=== PATIENT | male | born 1990 | race Two or more races ===

== ENCOUNTER 2018-08-01 05:03 | Emergency (ER) | payer SELFPAY ==
[2018-08-01] MEDS ORDERED: Adenosine 6 MG/2 ML VIAL ONE (05:05)
[2018-08-01] MEDS ORDERED: Rocuronium Bromide 10 MG/ML (10ML VIAL) ONE (05:08)
[2018-08-01] MEDS ORDERED: Ketamine 50 MG/ML (10ML VIAL) ONE (05:08)
[2018-08-01] MEDS ORDERED: Fentanyl 100 MCG/2 ML VIAL ONE (05:13)
--- NOTE | 2018-08-01 05:56 | PDOC.EVN ---
Event Note - Event Note Event Note: Code Blue Note: I was called to code blue in [facility]. When I arrived the patient was on his side with spit around his mouth and no obvious trauma, supported by L&D RN's and Dr. Lau. Suction was attempted but not working. I ordered versed 5 mg IM x 1. He finished convulsing and subsequently was post-ictal with deep sonorous respirations and was intermittently combative. A second bed was brought to the room, which the patient was placed in, and we obtained IV access and started a NSB. An initial pulse ox had a poor waveform with 80% and I called for help with a potentially difficult airway with no suction and no VL at bedside. We replaced the pulse ox and his saturation was 90%. A FM was placed and his sat froilan to the upper 90's. During this time he was tachycardic in the 180's that appeared to be narrow complex and was difficult to determine the rhythm on the small portable monitor. He was not hypotensive. At this point I felt we had time to transport him to the ED for definitive care in a controlled setting. Transport was uneventful and handoff given to the EM physicians. Appreciate their assistance.
[2018-08-01 06:02] LABS: Lavender RECEIVED; Red RECEIVED
[2018-08-01 06:16] LABS: Acetaminophen Less than 6.0 mcg/mL (10.0-30.0); Alcohol Less than 10 mg/dL (Less than 10); Salicylate Less than 8.0 mg/dL (15.0-30.0)
[2018-08-01 06:17] LABS: ALT (SGPT) 27 U/L (8-55); AST (SGOT) 22 U/L (5-34); Albumin 4.2 g/dL (3.5-5.0); Alcohol Less than 10 mg/dL (Less than 10); Alkaline Phosphatase 66 U/L (40-150); Anion Gap 18 mmol/L (10-20); BUN (Urea Nitrogen) 19 mg/dL (8.9-20.6); Bilirubin, Total 0.5 mg/dL (0.2-1.2); Calc. Creatinine Clearance 0 mL/min (70-130); Calcium 9.5 mg/dL (7.8-10.44); Carbon Dioxide 21 mmol/L (22-29); Chloride 102 mmol/L (98-107); Estimated GFR-MDRD 60; Globulin 3.2 g/dL (2.4-3.5); Glucose 150 mg/dL (70-105); Potassium 4.1 mmol/L (3.5-5.1); Protein, Total 7.4 g/dL (6.0-8.3); Sodium 137 mmol/L (136-145)
[2018-08-01 06:21] LABS: #Basophils 0.1 thou/uL (0.0-0.2); #Eosinphils 0.2 thou/uL (0.0-0.7); #Lymphocytes 4.4 thou/uL (1.20-3.40); #Monocytes 0.5 thou/uL (0.11-0.59); #Neutrophils 6.9 thou/uL (1.40-6.50); %Basophils 0.9 % (0.0-1.0); %Eosinophils 1.5 % (0.0-10.0); %Lymphocytes 36.7 % (21.0-51.0); %Monocytes 4.1 % (0.0-10.0); %Neutrophils 56.8 % (42.0-75.0); Band 1 % (5-11); Eosinophils 2 % (0-10); Hemoglobin 14.3 g/dL (14.0-18.0); Hypochromia SLIGHT = 6-15 cells (100X) (0-5/hpf); Lymphocytes 29 % (21-51); MDiff Complete? YES; Mean Corpuscular HGB CONC 32.6 g/dL (32.0-36.0); Mean Corpuscular Hemoglobin 22.2 pg (27.0-31.0); Mean Corpuscular Volume 68.2 fL (78.0-98.0); Mean Platelet Volume 8.2 fL (7.4-10.4); Monocytes 3 % (0-10); Neutrophil 60 % (42-75); Platelet Count 271 thou/uL (130-400); Platelet Morphology Comment Appears Adequate; RBC Distribution Width 13.9 % (11.5-14.5); Reactive Lymphocytes 5 % (0-10); Red Blood Cell (RBC) Count 6.43 mill/uL (4.70-6.10); Target Cells SLIGHT = 2-5 cells (100X) (0-1/hpf); White Blood Cell (WBC) Count 12.1 thou/uL (4.8-10.8)
[2018-08-01] MEDS ORDERED: levETIRAcetam In NaCl (Iso-Os) 1,500 MG in Premix Bag 1 BAG IVPB SCH (06:30)
[2018-08-01 08:06] LABS: Bilirubin Negative (Negative); Blood, Urine Negative (Negative); Clarity CLEAR (Clear); Glucose, Urine (Dipstick) Negative (Negative); Leukocyte Negative (Negative); Nitrite Negative (Negative); Protein, Urine (Dipstick) Trace mg/dL (Neg-Trace); Urobilinogen 0.2 mg/dL (0.2-1.0); pH, Urine 5.5 (5.0-9.0)
--- NOTE | 2018-08-01 08:13 | CT ---
CT OF HEAD NONCONTRAST: INDICATION: Seizure activity. COMPARISON: No prior comparison. FINDINGS: There is no acute intracranial hemorrhage, mass effect, or midline shift. Ventricular system is norm al in size. Scattered retention cyst formation is seen within the paranasal sinuses. IMPRESSION: 1. No acute intracranial hemorrhage or mass effect. 2. Followup may be obtained with dedicated brain MRI in order to further discern potential etiologic site for seizure nidus. POS: DELL
[2018-08-01 08:32] LABS: Amphetamine Not Detected (NotDetected); Barbiturates Screen Detected (NotDetected); Benzodiazepine Screen Not Detected (NotDetected); Cocaine Metabolite Screen Not Detected (NotDetected); Medtox Control Line Valid? VALID (VALID); Medtox Reader # READER 1; Methadone Not Detected (NotDetected); Methamphetamine Not Detected (NotDetected); Opiate Screen Not Detected (NotDetected); Oxycodone Screen Not Detected (NotDetected); Phencyclidine (PCP) Not Detected (NotDetected); THC/Cannabinoid Screen Not Detected (NotDetected); Tricyclic Screen Not Detected (NotDetected)
== END 2018-08-01 08:35 | disposition home or self-care (01) ==
LOC: ERS 05:03
DX: G40.909 Epilepsy, unspecified, not intractable, without status epilepticus (principal); I48.91 Unspecified atrial fibrillation
CPT/HCPCS: 36415; 70450; 80053; 80306; 80307; 81003; 84146; 84443; 84484; 85025; 93005; 96361; 96374; J0153; J1953; J3010

== ENCOUNTER 2019-06-25 09:30 | Emergency (ER) | payer SELFPAY ==
--- NOTE | 2019-06-25 15:04 | CON ---
DATE OF CONSULTATION: REASON FOR CONSULTATION: Chest pain. HISTORY OF PRESENTING ILLNESS: The patient gives history of having retrosternal chest pain from yesterday morning. This pain was 8/10 in intensity and was worse on coughing and sneezing and deep breathing. No complaints of cough or expectoration. No history of fever. No complaints of myalgias or exposure to flu-like illness. He works in the [employer] industry. The patient also mentions that he has had a cardiac catheterization done through right radial approach in March of 2018 at the facility in [place], [place]. They did not find any flow-limiting disease or any interventions were done then. PAST MEDICAL AND SURGICAL HISTORY: Obesity; cardiac catheterization done in March of 2018 with clear coronaries; sleep apnea, on CPAP; history of seizure disorder, last seizure was in July of 2018. CURRENT MEDICATIONS: 1. Dilantin twice daily unknown dose exact. 2. Protonix 40 mg daily. 3. Albuterol inhaler q.6 hourly p.r.n. ALLERGIES: NO KNOWN DRUG ALLERGIES. PERSONAL HISTORY: Does not abuse alcohol or drugs. No history of smoking. FAMILY HISTORY: Father of massive NC at the age of 40. Mother is living and healthy. CODE STATUS: Full. REVIEW OF SYSTEMS: CONSTITUTIONAL: Negative for weight loss or gain, ability to conduct usual activities. SKIN: Negative for rash, itching. EYES: Negative for double vision, pain. ENT/MOUTH: Negative for nose bleeding, neck stiffness, pain, tenderness. CARDIOVASCULAR: Negative for palpitations, dyspnea on exertion, orthopnea. RESPIRATORY: Negative for shortness of breath, wheezing, cough, hemoptysis, fever or night sweats. GASTROINTESTINAL: Negative for poor appetite, abdominal pain, heartburn, nausea, vomiting, constipation, or diarrhea. GENITOURINARY: Negative for urgency, frequency, dysuria, nocturia. MUSCULOSKELETAL: Negative for pain, swelling. NEUROLOGIC/PSYCHIATRIC: Negative for anxiety, depression. ALLERGY/IMMUNOLOGIC: Negative for skin rash, bleeding tendency. PHYSICAL EXAMINATION: GENERAL: The patient is a 29-year-old male who is currently not in any acute distress. VITAL SIGNS: Blood pressure 118/76, pulse 66 per minute, respiratory rate 20 per minute, temperature 98.2 degrees Fahrenheit, saturating 96% on room air. NECK: Supple. No elevated JVD. HEENT: Eyes; extraocular muscles are intact. Pupils are reacting to light. Oral cavity, mucous membranes are moist. No exudates or congestion. CARDIOVASCULAR: S1 and S2 heard. Regular rhythm. RESPIRATORY: Air entry 2+ bilateral. No rales or rhonchi. ABDOMEN: Soft. Bowel sounds heard. No tenderness, rigidity, or guarding. EXTREMITIES: No peripheral edema or calf tenderness. VASCULAR: Peripheral pulses 2+ bilateral. No ischemic ulcerations or gangrene. CENTRAL NERVOUS SYSTEM: No gross focal deficits noted. The patient is alert, awake, oriented well. PSYCHIATRIC: The patient's mood is euthymic. No hallucinations or delusions. LABORATORY DATA: EKG done shows normal sinus rhythm at 67 beats per minute. Chest x-ray done shows no acute cardiopulmonary abnormality. White count of 10, hemoglobin and hematocrit 13 and 46, platelet count 291 with 50% neutrophils, MCV 71. D-dimer is less than 0.27. BUN 12, creatinine 0.9. Troponin x2 is negative. BNP less than 10. Albumin is 4.0. Urine drug screen is negative. CLINICAL IMPRESSION AND PLAN: The patient will be discharged from the ER. He has noncardiac pleuritic chest pain at present. The patient might be likely early into acute bronchitis. His chest x-ray does not reveal any infiltrate. Clinically, the patient does not have either rhonchi, rales, or wheezes. His two sets of cardiac enzymes are negative despite having chest pain from yesterday morning. His chest pain is pleuritic in nature. He will be given a prescription for Protonix 40 mg twice daily along with albuterol inhaler. I have asked him to take Motrin if needed if the pain gets worse. He is also advised to come to the nearest emergency room if he were to develop fever, cough, or expectoration. I have given complete updates to the patient and his [id number] at bedside. They voiced clear understanding of current discharge plan. I have also discussed the findings on the current plan with Dr. Locke in the ER, and he will be shortly discharging the patient home. The patient has had a normal coronary angiogram in March of 2018. Job ID: [id number]
== END 2019-06-25 11:33 | disposition home or self-care (01) ==
LOC: ERS 09:30
DX: R07.89 Other chest pain (principal); G47.30 Sleep apnea, unspecified; G40.909 Epilepsy, unspecified, not intractable, without status epilepticus
CPT/HCPCS: 36415; 85379; 93005

== ENCOUNTER 2021-01-29 21:18 | Inpatient (IN) | payer BC, SELFPAY ==
[2021-01-29] MEDS ORDERED: Ondansetron PF 4 MG/2 ML Vial IVP PRN (23:04)
[2021-01-29] MEDS ORDERED: Guaifenesin DM 100-10/5 ML UDCUP PO PRN (23:04)
[2021-01-29] MEDS ORDERED: Bisacodyl 5 MG TAB PO PRN (23:04)
[2021-01-29] MEDS ORDERED: Senokot S 8.6-50 MG TAB PO PRN (23:04)
[2021-01-29] MEDS ORDERED: Heparin 10,000 UNITS/ 10 ML VIAL SLOW IVP SCH (23:15)
[2021-01-29] MEDS ORDERED: Heparin 25,000 units/D5W 500 ML IVPB SCH (23:15)
[2021-01-29] MEDS ORDERED: Pharmacy to Dose REMDESIVIR IVPB PRN (23:16)
[2021-01-29] MEDS ORDERED: Cholecalciferol (Vitamin D3) 400 UNITS TAB PO SCH (23:30)
[2021-01-29] MEDS ORDERED: Ascorbic Acid 500 mg Chewable Tablet PO SCH (23:30)
[2021-01-29 23:49] LABS: Hemoglobin 13.8 g/dL (14.0-18.0); Platelet Count 524 thou/uL (130-400)
[2021-01-29] MEDS: Acetaminophen 325 MG TAB PO PRN (23:54)
[2021-01-29] MEDS: Dexamethasone 10 MG/ML VIAL SLOW IVP SCH (23:54)
[2021-01-29] MEDS: Azithromycin 500 MG in Sodium Chloride 0.9% 250 ML 250 ML IVPB SCH (23:54)
[2021-01-30 00:06] LABS: PTT 144.8 sec (22.9-36.1)
[2021-01-30 01:25] VITALS: BMI 37.4
[2021-01-30] MEDS: cefTRIAXone\\ROCEPHIN 2 GM in Sodium Chloride 0.9% 100 ML IVPB SCH (02:06)
[2021-01-30 04:31] LABS: #Eosinphils 0.1 thou/uL (0.0-0.7); #Lymphocytes 1.6 thou/uL (1.20-3.40); #Monocytes 0.3 thou/uL (0.11-0.59); #Neutrophils 10.5 thou/uL (1.40-6.50); %Basophils 0.1 % (0.0-1.0); %Eosinophils 0.5 % (0.0-10.0); %Lymphocytes 12.6 % (21.0-51.0); %Monocytes 2.6 % (0.0-10.0); %Neutrophils 84.1 % (42.0-75.0); Hemoglobin 13.6 g/dL (14.0-18.0); Mean Corpuscular HGB CONC 33.2 g/dL (32.0-36.0); Mean Corpuscular Hemoglobin 22.8 pg (27.0-31.0); Mean Corpuscular Volume 68.7 fL (78.0-98.0); Mean Platelet Volume 7.8 fL (7.4-10.4); Platelet Count 515 thou/uL (130-400); RBC Distribution Width 13.9 % (11.5-14.5); Red Blood Cell (RBC) Count 5.97 mill/uL (4.70-6.10); White Blood Cell (WBC) Count 12.5 thou/uL (4.8-10.8)
[2021-01-30 05:30] LABS: ALT (SGPT) 43 U/L (8-55); AST (SGOT) 23 U/L (5-34); Albumin 3.4 g/dL (3.5-5.0); Alkaline Phosphatase 50 U/L (40-110); Anion Gap 15 mmol/L (10-20); BUN (Urea Nitrogen) 8 mg/dL (8.9-20.6); Bilirubin, Total 0.9 mg/dL (0.2-1.2); Calc. Creatinine Clearance 225 mL/min (70-130); Calcium 9.3 mg/dL (7.8-10.44); Carbon Dioxide 21 mmol/L (22-29); Chloride 105 mmol/L (98-107); Globulin 3.5 g/dL (2.4-3.5); Glucose 126 mg/dL (70-105); Protein, Total 6.9 g/dL (6.0-8.3); Sodium 136 mmol/L (136-145)
[2021-01-30] MEDS ORDERED: Ondansetron ODT 4 MG TAB PO PRN (06:54)
[2021-01-30] MEDS ORDERED: HYDROcodone/Acetaminophen 5/325 mg Tablet PO PRN (06:54)
[2021-01-30] MEDS ORDERED: Loratadine 10 MG TAB PO PRN (06:54)
[2021-01-30] MEDS ORDERED: hydrALAZINE 20 MG/ML VIAL SLOW IVP PRN (06:54)
[2021-01-30] MEDS ORDERED: Zolpidem Tartrate 5 MG TAB PO PRN (06:54)
[2021-01-30] MEDS ORDERED: Sodium Chloride 0.65% Nasal 44 ML BOT EA NARE PRN (06:54)
[2021-01-30] MEDS ORDERED: Hydrocerin (Eucerin) Cream 120 gm Jar TOP PRN (06:54)
[2021-01-30] MEDS ORDERED: Cepastat Lozenges 1 LOZ PO PRN (06:54)
[2021-01-30] MEDS ORDERED: Benzonatate 100 MG CAP PO PRN (06:54)
[2021-01-30] MEDS ORDERED: Loperamide HCl 2 MG CAP PO PRN (06:54)
[2021-01-30] MEDS ORDERED: Artificial Tear Sol 15 ML BOT EA EYE PRN (06:54)
[2021-01-30] MEDS ORDERED: Albuterol 200 PUFF (6.7GM INHALER) INH PRN (07:11)
[2021-01-30] MEDS ORDERED: FLU VACC QS2021-22(6MOS UP)/PF 60 MCG/0.5 ML SYRINGE IM ONE (09:00)
[2021-01-30] MEDS ORDERED: Famotidine/PF 20 mg/2ml Vial SLOW IVP SCH (09:00)
[2021-01-30] MEDS: Zinc Sulfate 220 MG CAP PO SCH (09:16)
[2021-01-30] MEDS: Pantoprazole 40 MG VIAL IVP SCH ×2 (09:16→21:43)
[2021-01-30] MEDS: Enoxaparin Sodium 100 MG/ML SYRINGE SC SCH ×2 (09:16→21:44)
[2021-01-30] MEDS: Cholecalciferol (Vitamin D3) 400 UNITS TAB PO SCH (09:16)
[2021-01-30] MEDS: Ascorbic Acid 500 mg Chewable Tablet PO SCH (09:16)
[2021-01-30] MEDS: Dexamethasone 10 MG/ML VIAL SLOW IVP SCH ×2 (12:07→23:55)
[2021-01-30] MEDS: Albuterol 200 PUFF (6.7GM INHALER) INH SCH ×2 (13:30→18:35)
[2021-01-30 15:04] LABS: Clarity Clear (Clear); Glucose, Urine (Dipstick) Normal (Negative); Leukocyte Negative Leu/uL (Negative); Nitrite Negative (Negative); Protein, Urine (Dipstick) 20 mg/dL (Neg-Trace)
[2021-01-30 15:05] LABS: Bilirubin Negative (Negative); Blood, Urine Negative (Negative); Ketone, Urine Negative (Negative); Urobilinogen 12 mg/dL (Less than 2)
[2021-01-30] MEDS: Azithromycin 500 MG in Sodium Chloride 0.9% 250 ML 250 ML IVPB SCH (23:55)
[2021-01-31] MEDS: cefTRIAXone\\ROCEPHIN 2 GM in Sodium Chloride 0.9% 100 ML IVPB SCH (01:11)
[2021-01-31] MEDS: Acetaminophen 325 MG TAB PO PRN ×3 (01:11→20:02)
[2021-01-31] MEDS: Albuterol 200 PUFF (6.7GM INHALER) INH SCH ×4 (01:11→18:43)
[2021-01-31 06:22] LABS: ALT (SGPT) 41 U/L (8-55); AST (SGOT) 20 U/L (5-34); Albumin 3.5 g/dL (3.5-5.0); Alkaline Phosphatase 51 U/L (40-110); Anion Gap 15 mmol/L (10-20); BUN (Urea Nitrogen) 11 mg/dL (8.9-20.6); Bilirubin, Total 0.5 mg/dL (0.2-1.2); Calc. Creatinine Clearance 189 mL/min (70-130); Calcium 9.6 mg/dL (7.8-10.44); Carbon Dioxide 23 mmol/L (22-29); Chloride 105 mmol/L (98-107); Globulin 3.7 g/dL (2.4-3.5); Glucose 138 mg/dL (70-105); Potassium 5.4 mmol/L (3.5-5.1); Protein, Total 7.2 g/dL (6.0-8.3); Sodium 138 mmol/L (136-145)
[2021-01-31 06:33] LABS: Hemoglobin 13.6 g/dL (14.0-18.0); Mean Corpuscular HGB CONC 31.9 g/dL (32.0-36.0); Mean Corpuscular Volume 68.9 fL (78.0-98.0); Mean Platelet Volume 8.1 fL (7.4-10.4); Platelet Count 571 thou/uL (130-400); RBC Distribution Width 13.8 % (11.5-14.5); Red Blood Cell (RBC) Count 6.19 mill/uL (4.70-6.10); White Blood Cell (WBC) Count 20.3 thou/uL (4.8-10.8)
[2021-01-31 07:21] LABS: Band 2 % (5-11); Lymphocytes 4 % (21-51); MDiff Complete? YES; Monocytes 3 % (0-10); Neutrophil 90 % (42-75); Platelet Morphology Comment Appears Increased; Polychromasia SLIGHT = 2-3 cells (100X) (0-2/hpf); Reactive Lymphocytes 1 % (0-10)
[2021-01-31] MEDS: Zinc Sulfate 220 MG CAP PO SCH (09:01)
[2021-01-31] MEDS: Apixaban 5 MG TAB PO SCH ×2 (09:01→19:48)
[2021-01-31] MEDS: Ascorbic Acid 500 mg Chewable Tablet PO SCH (09:01)
[2021-01-31] MEDS: Cholecalciferol (Vitamin D3) 400 UNITS TAB PO SCH (09:02)
[2021-01-31] MEDS: Dexamethasone 10 MG/ML VIAL SLOW IVP SCH (09:02)
[2021-01-31] MEDS: Calcium Carbonate 500 MG ChewTAB PO PRN (12:50)
[2021-01-31] MEDS: Azithromycin 500 MG in Sodium Chloride 0.9% 250 ML 250 ML IVPB SCH (23:21)
[2021-02-01] MEDS: Calcium Carbonate 500 MG ChewTAB PO PRN (00:33)
[2021-02-01] MEDS: Albuterol 200 PUFF (6.7GM INHALER) INH SCH ×4 (01:15→20:37)
[2021-02-01] MEDS: Cholecalciferol (Vitamin D3) 400 UNITS TAB PO SCH (08:04)
[2021-02-01] MEDS: Ascorbic Acid 500 mg Chewable Tablet PO SCH (08:04)
[2021-02-01] MEDS: Apixaban 5 MG TAB PO SCH ×2 (08:04→20:38)
[2021-02-01] MEDS: Zinc Sulfate 220 MG CAP PO SCH (08:05)
[2021-02-01] MEDS: Dexamethasone 10 MG/ML VIAL SLOW IVP SCH (08:05)
[2021-02-01 08:33] LABS: #Eosinphils 0.1 thou/uL (0.0-0.7); #Lymphocytes 3.2 thou/uL (1.20-3.40); #Monocytes 1.4 thou/uL (0.11-0.59); #Neutrophils 12.9 thou/uL (1.40-6.50); %Basophils 0.3 % (0.0-1.0); %Eosinophils 0.3 % (0.0-10.0); %Lymphocytes 18.2 % (21.0-51.0); %Monocytes 7.9 % (0.0-10.0); %Neutrophils 73.3 % (42.0-75.0); Hemoglobin 12.8 g/dL (14.0-18.0); Mean Corpuscular HGB CONC 32.5 g/dL (32.0-36.0); Mean Corpuscular Hemoglobin 22.5 pg (27.0-31.0); Mean Corpuscular Volume 69.1 fL (78.0-98.0); Mean Platelet Volume 7.9 fL (7.4-10.4); Platelet Count 523 thou/uL (130-400); RBC Distribution Width 13.7 % (11.5-14.5); Red Blood Cell (RBC) Count 5.71 mill/uL (4.70-6.10); White Blood Cell (WBC) Count 17.6 thou/uL (4.8-10.8)
[2021-02-01 08:43] LABS: Anion Gap 13 mmol/L (10-20); BUN (Urea Nitrogen) 13 mg/dL (8.9-20.6); Calc. Creatinine Clearance 241 mL/min (70-130); Calcium 8.7 mg/dL (7.8-10.44); Carbon Dioxide 25 mmol/L (22-29); Chloride 104 mmol/L (98-107); Glucose 130 mg/dL (70-105); Sodium 138 mmol/L (136-145)
[2021-02-01] MEDS ORDERED: Dexamethasone 10 MG/ML VIAL SLOW IVP SCH (09:00)
[2021-02-01] MEDS: Polyethylene Glycol 3350 17 GM Packet PO SCH ×2 (10:02→20:37)
[2021-02-01] MEDS: Docusate 100 MG CAP PO SCH (20:38)
[2021-02-01] MEDS: Acetaminophen 325 MG TAB PO PRN (20:45)
[2021-02-02] MEDS: Albuterol 200 PUFF (6.7GM INHALER) INH SCH ×2 (03:43→08:12)
[2021-02-02] MEDS: Polyethylene Glycol 3350 17 GM Packet PO SCH (08:12)
[2021-02-02] MEDS: Cholecalciferol (Vitamin D3) 400 UNITS TAB PO SCH (08:13)
[2021-02-02] MEDS: Zinc Sulfate 220 MG CAP PO SCH (08:13)
[2021-02-02] MEDS: Docusate 100 MG CAP PO SCH (08:13)
[2021-02-02] MEDS: Ascorbic Acid 500 mg Chewable Tablet PO SCH (08:13)
[2021-02-02] MEDS: Apixaban 5 MG TAB PO SCH (08:13)
[2021-02-02] MEDS ORDERED: Dexamethasone 10 MG/ML VIAL SLOW IVP SCH (09:00)
[2021-02-02 11:39] VITALS: BP 144/67; TEMP 97.9
== END 2021-02-02 13:25 | disposition home or self-care (01) | DRG 177 ==
LOC: 2SW 22:25
PROVIDERS: ADMIT Internal Medicine; ATTEND Internal Medicine
PROC: 8E0ZXY6 Isolation (ICD-10-PCS; principal; 2021-01-29)
DX: U07.1 COVID-19 (principal); J12.82 Pneumonia due to coronavirus disease 2019; I26.99 Other pulmonary embolism without acute cor pulmonale; G40.909 Epilepsy, unspecified, not intractable, without status epilepticus; D75.838 Other thrombocytosis; N30.90 Cystitis, unspecified without hematuria; G47.33 Obstructive sleep apnea (adult) (pediatric); E66.01 Morbid (severe) obesity due to excess calories; K59.00 Constipation, unspecified; Z87.442 Personal history of urinary calculi; Z68.37 Body mass index [BMI] 37.0-37.9, adult; Z99.89 Dependence on other enabling machines and devices
CPT/HCPCS: 36415; 80048; 80053; 81003; 82728; 84484; 85025; 85379; 86140; 87040; 93005; 93010; 93306; 93970; 94660; C9113; J0456; J0696; J1100; J1650; J3490; J7050